=== PATIENT | female | born 2000 ===

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

== ENCOUNTER → 2023-05-22 | Outpatient (CLI) | payer OTHER | END | disposition home or self-care (01) | LOC: LAB 17:21 → LAB SHORT 17:21 | DX: R30.0 Dysuria (principal) | CPT/HCPCS: 87077; 87086; 87186 ==

== ENCOUNTER → 2024-01-02 | Outpatient (CLI) | payer OTHER | END | disposition home or self-care (01) | LOC: LAB 15:20 → LAB SHORT 15:20 | DX: R30.0 Dysuria (principal) | CPT/HCPCS: 87086 ==